=== PATIENT | male | born 1985 | race Caucasian/White ===

== ENCOUNTER 2017-10-20 18:29 | Inpatient (IN) | payer OTHER ==
[2017-10-20] MEDS ORDERED: Sodium Chloride 0.9% 1,000 ML IV ONE (19:09)
--- NOTE | 2017-10-20 19:09 | C.PDOC ---
History Of Present Illness 32 y/o male presents to ED for complaints of non radiating diffuse abdominal pain associated with nausea that began today at 10AM. Patient describes pain as dull, crampy and aching. Denies fever, chills, vomiting or diarrhea. Time Seen by Provider: 10/20/17 19:09 Chief Complaint (Nursing): Abdominal Pain History Per: Patient History/Exam Limitations: no limitations Onset/Duration Of Symptoms: Hrs Current Symptoms Are (Timing): Still Present Severity: Moderate Pain Scale Rating Of: 4 Location Of Pain/Discomfort: Diffuse, RLQ Radiation Of Pain To:: None Quality Of Discomfort: Dull, Aching, Cramping Associated Symptoms: Nausea. denies: Fever, Chills, Vomiting, Diarrhea, Urinary Symptoms Exacerbating Factors: None Alleviating Factors: None Last Bowel Movement: Today Recent travel outside of the [place]: No Additional History Per: Patient Past Medical History Reviewed: Historical Data, Nursing Documentation, Vital Signs Vital Signs: Last Vital Signs Temp 98.7 F 10/20/17 18:37 Pulse 80 10/20/17 19:30 Resp 14 10/20/17 19:30 BP 138/86 10/20/17 18:37 Pulse Ox 100 10/20/17 22:39 - Medical History PMH: No Chronic Diseases Surgical History: No Surg Hx Family History: States: No Known Family Hx - Social History Hx Alcohol Use: Yes Hx Substance Use: No Review Of Systems Constitutional: Negative for: Fever, Chills ENT: Negative for: Throat Pain Cardiovascular: Negative for: Chest Pain Respiratory: Negative for: Shortness of Breath Gastrointestinal: Positive for: Nausea, Abdominal Pain (Diffuse, but especially RLQ). Negative for: Vomiting, Diarrhea Skin: Negative for: Rash Neurological: Negative for: Weakness, Numbness Psych: Negative for: Anxiety Physical Exam - Physical Exam Appears: Non-toxic, No Acute Distress Skin: Warm, Dry Head: Normacephalic Eye(s): bilateral: Normal Inspection Oral Mucosa: Moist Neck: Supple Chest: Symmetrical Cardiovascular: Rhythm Regular Respiratory: No Rales, No Rhonchi, No Wheezing Gastrointestinal/Abdominal: Soft, Tenderness (RUQ), Distention (Tympanic to percussion), No Guarding, No Rebound Back: Normal Inspection Extremity: Normal ROM Extremity: Bilateral: Atraumatic, Normal Color And Temperature, Normal ROM Pulses: Left Dorsalis Pedis: Normal, Right Dorsalis Pedis: Normal Neurological/Psych: Oriented x3, Normal Speech Gait: Steady ED Course And Treatment - Laboratory Results Result Diagrams: 10/20/17 19:39 10/20/17 19:39 O2 Sat by Pulse Oximetry: 100 (RA) Pulse Ox Interpretation: Normal Progress Note: Administered Protonix, Toradol, Zofran and IV fluids. Ordered Urinalysis and blood work. Disposition Discussed With Dr.: Familia Parks Comment: accepted the pt on his service and took over the care at 10:38 PM Doctor Will See Patient In The: Hospital Counseled Patient/Family Regarding: Studies Performed, Diagnosis - Disposition Disposition: HOSPITALIZED Disposition Time: 19:09 Condition: FAIR Forms: [facility] (Hebrew) - POA Present On Arrival: None - Clinical Impression Clinical Impression: Abdominal pain, Acute appendicitis - Scribe Statement The provider has reviewed the documentation as recorded by the Scribe Devika Munoz All medical record entries made by the Scribe were at my direction and personally dictated by me. I have reviewed the chart and agree that the record accurately reflects my personal performance of the history, physical exam, medical decision making, and the department course for this patient. I have also personally directed, reviewed, and agree with the discharge instructions and disposition. Decision To Admit - Pt Status Changed To: Hospital Disposition Of: Inpatient - Admit Certification Admit to Inpatient:: After my assessment, the patient will require hospitalization for at least two midnights. This is because of the severity of symptoms shown, intensity of services needed, and/or the medical risk in this patient being treated as an outpatient. - InPatient: Physician Admission Certification:: After my assessment, the patient will require hospitalization for at least two midnights. This is because of the severity of symptoms shown, intensity of services needed, and/or the medical risk in this patient being treated as an outpatient. - . Bed Request Type: Regular Admitting Physician: Familia Parks Patient Diagnosis: Abdominal pain, Acute appendicitis
[2017-10-20] MEDS ORDERED: Sodium Chloride 0.9% 1,000 ML ONE (19:30)
[2017-10-20 19:47] LABS: BASO % 0.1 % (0.0-2.0); HEMOGLOBIN 13.9 g/dL (12.0-18.0); LYMPH # 1.1 K/uL (1.0-4.3); LYMPH % 5.2 % (20.0-40.0); MEAN CORPUSCULAR HEMOGLOBIN 29.4 pg (27.0-31.0); MEAN CORPUSCULAR HGB CONC 33.8 g/dL (33.0-37.0); MEAN PLATELET VOLUME 9.6 fL (7.2-11.7); MONO # 0.7 K/uL (0.0-0.8); MONO % 3.4 % (0.0-10.0); NEUT # 18.7 K/uL (1.8-7.0); NEUT % 91.3 % (50.0-75.0); NRBC % 0.1 % (0.0-2.0); PLATELET COUNT 197 K/uL (130-400); RBC 4.73 Mil/uL (4.40-5.90); RED CELL DISTRIBUTION WIDTH 13.5 % (11.5-14.5); WHITE BLOOD COUNT 20.5 K/uL (4.8-10.8)
[2017-10-20 19:49] LABS: URINE BILIRUBIN NEGATIVE (NEGATIVE); URINE BLOOD NEGATIVE (NEGATIVE); URINE CLARITY Clear (Clear); URINE COLOR Yellow (YELLOW); URINE GLUCOSE (UA) NORMAL (Normal); URINE LEUKOCYTE ESTERASE NEG Leu/uL (Negative); URINE PROTEIN NEGATIVE (NEGATIVE); URINE UROBILINOGEN NORMAL mg/dL (0.2-1.0)
[2017-10-20 19:51] LABS: INR 1.1; PROTHROMBIN TIME 11.5 SECONDS (9.7-12.2)
[2017-10-20 19:58] LABS: ALB/GLOB RATIO 1.9 (1.0-2.1); ALBUMIN 4.9 g/dL (3.5-5.0); ALT/SGPT 34 U/L (21-72); AST/SGOT 21 U/L (17-59); BLOOD UREA NITROGEN 12 mg/dL (9-20); CALCIUM 9.6 mg/dl (8.6-10.4); GFR AFRICAN-AMERICAN > 60; GFR NON-AFRICAN AMERICAN > 60; LIPASE 62 U/L (23-300)
[2017-10-20] MEDS ORDERED: Iohexol 300 100 ML IJ ONE (20:17)
[2017-10-20 20:19] LABS: BANDS 1 % (0-2); LYMPHOCYTE 6 % (20-40); MONOCYTE 7 % (0-10); NEUTROPHIL 86 % (50-75); PLATELET ESTIMATE NORMAL (NORMAL); TOTAL CELLS COUNTED 100
[2017-10-20] MEDS ORDERED: Piperacillin/Tazobact 3.375 gm 100 ML IVPB STA (20:39)
[2017-10-20] MEDS ORDERED: Piperacillin/Tazobact 3.375 gm 100 ML IVPB ONE (21:19)
[2017-10-20] MEDS ORDERED: Dextrose 5%/0.45% NS 1,000 ML IV SCH (22:45)
[2017-10-20] MEDS ORDERED: metroNIDAZOLE IV 500 mg/100 ml 500 MG/100 ML BAG ONE (23:10)
[2017-10-20] MEDS: metroNIDAZOLE IV 500 mg/100 ml 500 MG/100 ML BAG IVPB SCH (23:13)
[2017-10-21] MEDS: Piperacillin/Tazobact 3.375 GM in Sodium Chloride 100 ML IVPB SCH ×4 (02:26→20:56)
[2017-10-21] MEDS ORDERED: HYDROmorphone 0.5 mg/0.5 ml ISec IVP PRN ×2 (03:16→17:42)
--- NOTE | 2017-10-21 05:15 | CP.PCM.CON ---
History of Present Illness - History of Present Illness History of Present Illness: Surgery: Dr. Carter CC: Abd pain HPI: 32M w. no significant PMH presents to ED w. acute onset abd pain x 1 day. The pain is in the lower abd. The pain is constant. There are no alleviating or aggravating factors. Pain is unrelated to diet. Pt denies N/V/D. No Fever chills. PMH: none PSH: none Meds: MAR reviewed NKDA Social: Social ETOH, no tobacco/drugs Fhx: Non-contributory Review of Systems - Review of Systems All systems: reviewed and no additional remarkable complaints except Past Patient History - Past Social History Smoking Status: Never Smoked - MUSCULOSKELETAL/RHEUMATOLOGICAL Hx Falls: No - PSYCHIATRIC Hx Substance Use: No Meds Allergies/Adverse Reactions: Allergies Allergy/AdvReac Type Severity Reaction Status Date / Time No Known Allergies Allergy Verified 10/20/17 18:39 - Medications Medications: Current Medications Hydromorphone HCl (Dilaudid) 0.5 mg IVP Q4H PRN PRN Reason: Pain, moderate (4-7) Dextrose/Sodium Chloride (Dextrose 5%/0.45% Ns 1000 Ml) 1,000 mls @ 90 mls/hr IV .[id number] [facility] Last Admin: 10/20/17 23:13 Dose: 90 mls/hr Metronidazole (Flagyl) 500 mg in 100 mls @ 100 mls/hr IVPB Q8H [facility] PRN Reason: Protocol Last Admin: 10/20/17 23:13 Dose: 100 mls/hr Piperacillin Sod/Tazobactam (Sod 3.375 gm/ Sodium Chloride) 100 mls @ 200 mls/ hr IVPB Q6H [facility] PRN Reason: Protocol Last Admin: 10/21/17 02:26 Dose: 200 mls/hr Pneumococcal Polyvalent Vaccine (Pneumovax 23 Vaccine) 0.5 ml SC .ONCE ONE Stop: 10/24/17 10:01 Physical Exam - Constitutional Appears: Non-toxic, No Acute Distress - Head Exam Head Exam: ATRAUMATIC, NORMOCEPHALIC - Eye Exam Eye Exam: EOMI - ENT Exam ENT Exam: Mucous Membranes Moist - Neck Exam Neck exam: Positive for: Full Rom - Respiratory Exam Respiratory Exam: NORMAL BREATHING PATTERN. absent: Accessory Muscle Use, Respiratory Distress - GI/Abdominal Exam GI & Abdominal Exam: Soft, Tenderness (lower abd). absent: Distended, Firm, Guarding, Rebound, Rigid - Extremities Exam Extremities exam: Negative for: calf tenderness, pedal edema - Neurological Exam Neurological exam: Alert, Oriented x3 Results - Vital Signs Recent Vital Signs: Last Vital Signs Temp 98.6 F 10/21/17 00:35 Pulse 72 10/21/17 00:35 Resp 20 10/21/17 00:35 BP 106/65 10/21/17 00:35 Pulse Ox 99 10/21/17 00:35 - Labs Result Diagrams: 10/20/17 19:39 10/20/17 19:39 Labs: Laboratory Results - last 24 hr 10/20/17 10/20/17 10/20/17 19:39 19:39 19:39 WBC 20.5 H RBC 4.73 Hgb 13.9 Hct 41.2 MCV 87.0 MCH 29.4 MCHC 33.8 RDW 13.5 Plt Count 197 MPV 9.6 Neut % (Auto) 91.3 H Lymph % (Auto) 5.2 L [place] % (Auto) 3.4 Eos % (Auto) 0.0 Baso % (Auto) 0.1 Neut # (Auto) 18.7 H Lymph # (Auto) 1.1 [place] # (Auto) 0.7 Eos # (Auto) 0.0 Baso # (Auto) 0.0 Neutrophils % (Manual) 86 H Band Neutrophils % 1 Lymphocytes % (Manual) 6 L Monocytes % (Manual) 7 Platelet Estimate Normal RBC Morphology Normal PT 11.5 INR 1.1 APTT 30 Sodium Potassium Chloride Carbon Dioxide Anion Gap BUN Creatinine Est GFR ( Amer) Est GFR (Non-Af Amer) Random Glucose Calcium Total Bilirubin AST ALT Alkaline Phosphatase Total Protein Albumin Globulin Albumin/Globulin Ratio Lipase Urine Color Yellow Urine Clarity Clear Urine pH 6.0 Ur Specific [place] 1.024 Urine Protein Negative Urine Glucose (UA) Normal Urine Ketones Negative Urine Blood Negative Urine Nitrate Negative Urine Bilirubin Negative Urine Urobilinogen Normal Ur Leukocyte Esterase Neg Urine WBC (Auto) < 1 Urine RBC (Auto) < 1 10/20/17 19:39 WBC RBC Hgb Hct MCV MCH MCHC RDW Plt Count MPV Neut % (Auto) Lymph % (Auto) [place] % (Auto) Eos % (Auto) Baso % (Auto) Neut # (Auto) Lymph # (Auto) [place] # (Auto) Eos # (Auto) Baso # (Auto) Neutrophils % (Manual) Band Neutrophils % Lymphocytes % (Manual) Monocytes % (Manual) Platelet Estimate RBC Morphology PT INR APTT Sodium 141 Potassium 4.3 Chloride 102 Carbon Dioxide 27 Anion Gap 16 BUN 12 Creatinine 0.7 L Est GFR ( Amer) > 60 Est GFR (Non-Af Amer) > 60 Random Glucose 119 H Calcium 9.6 Total Bilirubin 0.9 AST 21 ALT 34 Alkaline Phosphatase 64 Total Protein 7.5 Albumin 4.9 Globulin 2.5 Albumin/Globulin Ratio 1.9 Lipase 62 Urine Color Urine Clarity Urine pH Ur Specific [place] Urine Protein Urine Glucose (UA) Urine Ketones Urine Blood Urine Nitrate Urine Bilirubin Urine Urobilinogen Ur Leukocyte Esterase Urine WBC (Auto) Urine RBC (Auto) - Imaging and Cardiology CT scan - abdomen Status: Image reviewed by me, Report reviewed by me Assessment & Plan - Assessment and Plan (Free Text) Assessment: 32M w. appendicitis -Plan for OR today -NPO -IVF -pain meds -abx -d/w attending Evan PGY3
[2017-10-21] MEDS: metroNIDAZOLE IV 500 mg/100 ml 500 MG/100 ML BAG IVPB SCH ×3 (06:04→22:06)
[2017-10-21] MEDS: Sodium Chloride 0.9% 1,000 ML IV SCH ×3 (06:10→20:15)
--- NOTE | 2017-10-21 07:37 | CT ---
PROCEDURE: CT Abdomen and Pelvis without intravenous contrast HISTORY: Abdominal pain. Leukocytosis. COMPARISON: None. TECHNIQUE: Multiple contiguous axial images were performed through the abdomen and pelvis with the use of intravenous contrast. Subsequently, sagittal and coronal reformatted images were obtained. Radiation dose: Total exam DLP = 388 mGy-cm. This CT exam was performed using one or more of the following dose reduction techniques: Automated exposure control, adjustment of the mA and/or kV according to patient size, and/or use of iterative reconstruction technique. FINDINGS: LOWER THORAX: 2 millimeter subpleural nodule within the right middle lobe on series 3, image 5. Additional 3 millimeter subpleural pulmonary nodule along the lateral aspect of the left lower lobe on series 3, image 21. LIVER: Unremarkable. No gross lesion or ductal dilatation. GALLBLADDER AND BILE DUCTS: Unremarkable. PANCREAS: Unremarkable. No gross lesion or ductal dilatation. SPLEEN: Unremarkable. ADRENALS: Unremarkable. No mass. KIDNEYS AND URETERS: Unremarkable. No hydronephrosis. No solid mass. VASCULATURE: Unremarkable. No aortic aneurysm. BOWEL: Unremarkable. No obstruction. No gross mural thickening. Under distended descending and sigmoid colon. APPENDIX: Prominent dilated appendix measuring up to 9 millimeters best seen on axial images 118-135 and coronal sequences images 38-45. Minimal adjacent inflammation. PERITONEUM: Unremarkable. No free fluid. No free air. LYMPH NODES: Unremarkable. No enlarged lymph nodes. BLADDER: Mild nonspecific thickening of the anterior aspect of the urinary bladder with a small low-attenuation foci measuring 4 millimeters seen on series 3, image 157, nonspecific. Correlation with urinary bladder ultrasound may be helpful if clinically indicated. REPRODUCTIVE: Moderately enlarged prostate gland. BONES: No acute fracture. OTHER FINDINGS: None. IMPRESSION: Findings concerning for possible early or mild acute appendicitis. Clinical correlation. Mild nonspecific thickening of the anterior aspect of the urinary bladder with a small low-attenuation foci measuring 4 millimeters seen on series 3, image 157, nonspecific. Correlation with urinary bladder ultrasound may be helpful if clinically indicated. Additional findings as above. These findings were preliminarily reported at 10:00 p.m. on 10/20/[address] Lisa Solano from [employer].
[2017-10-21] MEDS ORDERED: Midazolam 2 MG/2 ML VIAL ONE (15:04)
[2017-10-21] MEDS ORDERED: Rocuronium 10 mg/ml (5 ml) ONE (15:06)
[2017-10-21] MEDS ORDERED: Succinylcholine Chloride 20 mg/ml Syr (5 ml) IV ONE (15:06)
[2017-10-21] MEDS ORDERED: Propofol 10 mg/ml Inj (20 ML) ONE (16:22)
[2017-10-21] MEDS ORDERED: Neostigmine Methylsulfate 3mg/3ml Syringe IV ONE (17:22)
[2017-10-21] MEDS: Lactated Ringer's 1,000 ML IV SCH (17:45)
[2017-10-21 19:14] VITALS: TEMP 99.1
--- NOTE | 2017-10-21 20:26 | PCM.SURG1 ---
Surgeon's Initial Post Op Note - Surgeon's Notes Surgeon: Dr. Carter Awning Assembler: Dr. Marin PGY3 Type of Anesthesia: General Endo Pre-Operative Diagnosis: acute appendicitis Operative Findings: appendicitis Post-Operative Diagnosis: same Operation Performed: laparoscopic appendectomy Specimen/Specimens Removed: appendix Estimated Blood Loss: EBL {In ML}: 20 Blood Products Given: N/A Drains Used: No Drains Post-Op Condition: Good Date of Surgery/Procedure: 10/21/17 Time of Surgery/Procedure: 16:30
--- NOTE | 2017-10-21 23:11 | CP.PCM.HP ---
Past Patient History - Past Social History Smoking Status: Never Smoked - MUSCULOSKELETAL/RHEUMATOLOGICAL Hx Falls: No - PSYCHIATRIC Hx Substance Use: No Meds Allergies/Adverse Reactions: Allergies Allergy/AdvReac Type Severity Reaction Status Date / Time No Known Allergies Allergy Verified 10/20/17 18:39 Results - Vital Signs Recent Vital Signs: Last Vital Signs Temp 99.1 F 10/21/17 19:13 Pulse 98 H 10/21/17 19:13 Resp 18 10/21/17 19:13 BP 131/79 10/21/17 19:13 Pulse Ox 97 10/21/17 19:13 - Labs Result Diagrams: 10/20/17 19:39 10/20/17 19:39 Labs: Laboratory Results - last 24 hr 10/21/17 08:01 Blood Type A POSITIVE Antibody Screen Negative
[2017-10-22 01:07] VITALS: BP 115/54; PULSE 99; RESP 20; O2SAT 98
[2017-10-22] MEDS: Sodium Chloride 0.9% 1,000 ML IV SCH (01:30)
[2017-10-22] MEDS: Piperacillin/Tazobact 3.375 GM in Sodium Chloride 100 ML IVPB SCH ×2 (03:06→09:27)
--- NOTE | 2017-10-22 03:57 | OP ---
PROCEDURE DATE: 10/21/2017 PREOPERATIVE DIAGNOSIS: Acute appendicitis. POSTOPERATIVE DIAGNOSIS: Acute appendicitis. PROCEDURE CARRIED OUT: Laparoscopic appendectomy. SURGEON: Elliott Carter Jr., MD RETAIL FIELD REPRESENTATIVE: Dino Marin DO ANESTHESIOLOGIST: Ambar Olvera MD ANESTHESIA: General anesthesia. INDICATIONS: The patient is a young man, abdominal pain, elevated white count. OPERATIVE FINDINGS: Acutely inflamed appendix. Rest of the intraoperative findings were unremarkable. DESCRIPTION OF PROCEDURE: The patient was given general anesthesia and intravenous antibiotics. Venodyne boots were applied. Two 12 mm trocars were placed in the left lower quadrant and in the umbilicus. A 5 mm trocar was placed in the left flank. The patient was manipulated in such a way that the appendix was up. Appendix was identified. It was grasped. The mesoappendix and base of the appendix were divided with stapling device. Excellent hemostasis was obtained. After this had been done, any residual suture clips were removed from the field, and the appendix was removed in a bag. We then closed with the closure devices the 2 mm trocar points, and this was checked again to see if there was no injury to the bowel and no other issues. After this had been done, we closed the skin with subcuticular closure. Blood loss for the procedure was 10 mL. Operation carried out, laparoscopic appendectomy. Elliott Carter Jr., MD
--- NOTE | 2017-10-22 05:17 | HP ---
CHIEF COMPLAINT: Abdominal pain x1 day. HISTORY OF PRESENT ILLNESS: This is a 32-year-old male with no past medical history. At 10:00 a.m.on the day of admission, he developed acute onset of right lower quadrant pain which started in epigastric area and later shifted to right lower quadrant. Along with that, he was having nausea. No vomiting. He had fever, chills, rigors, body aches, tiredness, anorexia, malaise, and fatigue. He denies any dysuria, hematuria, pyuria. He denies any . He denied any joint pain, back pain. PAST MEDICAL HISTORY: Nothing significant. ALLERGIES: NO KNOWN ALLERGIES. CURRENT MEDICATIONS: None. FAMILY HISTORY: None. PHYSICAL EXAMINATION: GENERAL: A young man, in no acute distress. VITAL SIGNS: Blood pressure 110/70, pulse 88, respiratory rate 18, temperature 99.3. SKIN: Warm, flush. No purpura. No petechiae. LUNGS: Clear. No rales. No rhonchi. CVS: S1, S2 are regular. HEENT: Atraumatic, normocephalic. NECK: Supple. ABDOMEN: Right lower quadrant tenderness. Bowel sounds are present. RECTAL: No masses. No bleeding. EXTREMITIES: No clubbing, cyanosis, or edema. PLANS EXAMINER: Awake, alert, oriented x3. ASSESSMENT: Acute appendicitis. PLAN: Admit . Familia Parks MD
[2017-10-22] MEDS: metroNIDAZOLE IV 500 mg/100 ml 500 MG/100 ML BAG IVPB SCH (06:41)
[2017-10-22 06:46] LABS: BASO % 0.1 % (0.0-2.0); EOS % 0.4 % (0.0-4.0); HEMOGLOBIN 12.3 g/dL (12.0-18.0); LYMPH # 2.1 K/uL (1.0-4.3); LYMPH % 23.8 % (20.0-40.0); MEAN CELL VOLUME 85.8 fL (80.0-94.0); MEAN CORPUSCULAR HEMOGLOBIN 29.1 pg (27.0-31.0); MEAN CORPUSCULAR HGB CONC 33.9 g/dL (33.0-37.0); MEAN PLATELET VOLUME 9.9 fL (7.2-11.7); MONO # 0.6 K/uL (0.0-0.8); MONO % 6.9 % (0.0-10.0); NEUT % 68.8 % (50.0-75.0); RBC 4.21 Mil/uL (4.40-5.90); RED CELL DISTRIBUTION WIDTH 13.4 % (11.5-14.5); WHITE BLOOD COUNT 8.7 K/uL (4.8-10.8)
[2017-10-22 06:54] LABS: BLOOD UREA NITROGEN 8 mg/dL (9-20); CALCIUM 8.4 mg/dl (8.6-10.4); GFR AFRICAN-AMERICAN > 60; GFR NON-AFRICAN AMERICAN > 60
[2017-10-22] MEDS: Lactated Ringer's 1,000 ML IV SCH (07:05)
--- NOTE | 2017-10-22 08:54 | CP.PCM.PN ---
Subjective - Date & Time of Evaluation Date of Evaluation: 10/22/17 Time of Evaluation: 07:15 - Subjective Subjective: General Surgery Progress Note for Dr. Carter 32M seen and evaluated this AM. Pt resting comfortably in bed this morning. Does not complain of pain just mild discomfort. He is ambulating. No BM or passing flatus. Denies f/c, n/v/d, SOB, CP, or urinary symptoms. Objective - Vital Signs/Intake and Output Vital Signs (last 24 hours): Temp Pulse Resp BP Pulse Ox 99.1 F 99 H 20 115/54 L 98 10/22/17 00:00 10/22/17 00:00 10/22/17 00:00 10/22/17 00:00 10/22/17 00:00 Intake and Output: 10/22/17 10/22/17 06:59 18:59 Intake Total 1350 Balance 1350 - Medications Medications: Current Medications Enoxaparin Sodium (Lovenox) 40 mg SC DAILY [facility] Hydromorphone HCl (Dilaudid) 0.5 mg IVP Q4H PRN PRN Reason: Pain, moderate (4-7) Last Admin: 10/21/17 09:37 Dose: 0.5 mg Metronidazole (Flagyl) 500 mg in 100 mls @ 100 mls/hr IVPB Q8H [facility] PRN Reason: Protocol Last Admin: 10/22/17 06:41 Dose: 100 mls/hr Piperacillin Sod/Tazobactam (Sod 3.375 gm/ Sodium Chloride) 100 mls @ 200 mls/ hr IVPB Q6H [facility] PRN Reason: Protocol Last Admin: 10/22/17 03:06 Dose: 200 mls/hr Sodium Chloride (Sodium Chloride 0.9%) 1,000 mls @ 100 mls/hr IV .Q10H [facility] Last Admin: 10/22/17 01:30 Dose: Not Given Lactated Ringer's (Lactated Ringer's) 1,000 mls @ 75 mls/hr IV .[id number] [facility] Last Admin: 10/22/17 07:05 Dose: Not Given Ondansetron HCl (Zofran Inj) 4 mg IVP Q6H PRN PRN Reason: Nausea/Vomiting Pneumococcal Polyvalent Vaccine (Pneumovax 23 Vaccine) 0.5 ml SC .ONCE ONE Stop: 10/24/17 10:01 - Labs Labs: 10/22/17 06:26 10/22/17 06:26 PT 11.5 SECONDS (9.7-12.2) 10/20/17 19:39 INR 1.1 10/20/17 19:39 APTT 30 SECONDS (21-34) 10/20/17 19:39 - Constitutional Appears: Well, Non-toxic, No Acute Distress - Head Exam Head Exam: ATRAUMATIC, NORMAL INSPECTION, NORMOCEPHALIC - Eye Exam Eye Exam: EOMI, Normal appearance - Respiratory Exam Respiratory Exam: Clear to Ausculation Bilateral, NORMAL BREATHING PATTERN - Cardiovascular Exam Cardiovascular Exam: REGULAR RHYTHM, +S1, +S2. absent: Murmur - GI/Abdominal Exam GI & Abdominal Exam: Soft, Normal Bowel Sounds. absent: Distended, Firm, Guarding, Tenderness, Rebound - Neurological Exam Neurological Exam: Alert, Awake, Oriented x3 - Psychiatric Exam Psychiatric exam: Normal Affect, Normal Mood - Skin Additional comments: port site dressings c/d/i Assessment and Plan - Assessment and Plan (Free Text) Assessment: 32M s/p lap appy POD1 Plan: c/w pain control encouraged ambulation and use of IS no further surgical intervention at this time plan for discharge please reconsult as needed Micky Verdugo PGY1
[2017-10-22] MEDS ORDERED: Enoxaparin 40 mg Syringe SC SCH (10:00)
--- NOTE | 2017-10-22 11:24 | CP.PCM.PN ---
Subjective - Date & Time of Evaluation Date of Evaluation: 10/22/17 Time of Evaluation: 11:24 - Subjective Subjective: Alert, orientedx3, denies acute pain or distress, NAD. Objective - Vital Signs/Intake and Output Vital Signs (last 24 hours): Temp Pulse Resp BP Pulse Ox 99.1 F 99 H 20 115/54 L 98 10/22/17 00:00 10/22/17 00:00 10/22/17 00:00 10/22/17 00:00 10/22/17 00:00 Intake and Output: 10/22/17 10/22/17 06:59 18:59 Intake Total 1350 Balance 1350 - Medications Medications: Current Medications Enoxaparin Sodium (Lovenox) [address] [facility] Last Admin: 10/22/17 09:26 Dose: 40 mg Hydromorphone HCl (Dilaudid) 0.5 mg IVP Q4H PRN PRN Reason: Pain, moderate (4-7) Last Admin: 10/21/17 09:37 Dose: 0.5 mg Metronidazole (Flagyl) 500 mg in 100 mls @ 100 mls/hr IVPB Q8H [facility] PRN Reason: Protocol Last Admin: 10/22/17 06:41 Dose: 100 mls/hr Piperacillin Sod/Tazobactam (Sod 3.375 gm/ Sodium Chloride) 100 mls @ 200 mls/ hr IVPB Q6H [facility] PRN Reason: Protocol Last Admin: 10/22/17 09:27 Dose: 200 mls/hr Sodium Chloride (Sodium Chloride 0.9%) 1,000 mls @ 100 mls/hr IV .Q10H [facility] Last Admin: 10/22/17 01:30 Dose: Not Given Lactated Ringer's (Lactated Ringer's) 1,000 mls @ 75 mls/hr IV .[id number] [facility] Last Admin: 10/22/17 07:05 Dose: Not Given Ondansetron HCl (Zofran Inj) 4 mg IVP Q6H PRN PRN Reason: Nausea/Vomiting Pneumococcal Polyvalent Vaccine (Pneumovax 23 Vaccine) 0.5 ml SC .ONCE ONE Stop: 10/24/17 10:01 - Labs Labs: 10/22/17 06:26 10/22/17 06:26 PT 11.5 SECONDS (9.7-12.2) 10/20/17 19:39 INR 1.1 10/20/17 19:39 APTT 30 SECONDS (21-34) 10/20/17 19:39 Assessment and Plan - Assessment and Plan (Free Text) Assessment: Patient post appendectomy, seen and examined. Alert and orientedx3, denies acute pain, tolerating diet. Seen and cleared by DR Domínguez today. Discussed with DR Parks , plan to discharge home today. Advised to follow up with PMD and surgery in 1 week.
--- NOTE | 2017-10-23 10:55 | DS ---
ADMISSION DIAGNOSIS: Appendicitis. DISCHARGE DIAGNOSIS: Acute appendicitis. This is a 32-year-old young male with acute appendicitis, status post appendectomy and the patient is feeling better. He is on diet. No symptoms. He is for discharge. VITAL SIGNS: Blood pressure 119/54, pulse 99, respiratory rate 20, temperature 99.1. LABORATORY DATA: WBC initially was 20.5, hemoglobin 13.9, hematocrit 41.2, platelets were 197. Urinalysis normal. CONDITION UPON DISCHARGE: Stable. Familia Parks MD
[2017-10-24] MEDS ORDERED: Pneumococcal 23-Valent Vaccine SC ONE (10:00)
== END 2017-10-22 12:10 | disposition home or self-care (01) | DRG 343 ==
LOC: C.ER 18:29 → C.9E 22:39 → C.3T 10-21
PROVIDERS: ADMIT Internal Medicine; ATTEND Internal Medicine
PROC: 0DTJ4ZZ Resection of Appendix, Percutaneous Endoscopic Approach (ICD-10-PCS; principal; 2017-10-21 15:30)
DX: K35.80 Unspecified acute appendicitis (principal); D72.829 Elevated white blood cell count, unspecified